=== PATIENT | female | born 1970 | race Caucasian/White ===

== ENCOUNTER → 2020-07-20 | Outpatient (CLI) | payer OTHER, MEDICARE ==
[~2020-07-20] MED LIST: ALPR-585 PO; B CO1TAB14 PO; BUPR1PAT20 TD; CHOL10003 PO; DULO60CA56 PO; HYDR-1067 PO; MORP-29 PO; MULT-658 PO; NALD0.2T3 PO; PREG100C PO; QUET100T PO; SENN-190 PO; TIZA4TAB2 PO; TOPI100T24 PO; fish oil PO; turmeric PO
== END | disposition home or self-care (01) ==
LOC: STAR 15:02
PROVIDERS: ATTEND Otolaryngology
DX: Z20.822 Contact with and (suspected) exposure to COVID-19 (principal); K14.8 Other diseases of tongue; R59.0 Localized enlarged lymph nodes
CPT/HCPCS: 87635

== ENCOUNTER 2020-07-26 06:57 | Day surgery (SDC) | payer OTHER, MEDICARE ==
[~2020-07-26] VITALS: Ht 160 cm; Wt 98.2 kg
[2020-07-26] MEDS ORDERED: FENTANYL PF 100 MCG/2ML ONE (07:45)
[2020-07-26] MEDS ORDERED: ROCURONIUM 10MG/ML,5ML ONE (07:45)
[2020-07-26] MEDS ORDERED: DEXAMETHASONE 4 MG/ML, 1ML ONE (07:45)
[2020-07-26] MEDS ORDERED: PROPOFOL 10 MG/ML, 20ML ONE (07:45)
[2020-07-26] MEDS ORDERED: ONDANSETRON 2MG/ML, 2ML ONE (07:45)
[2020-07-26] MEDS ORDERED: SUCCINYLCHOLINE 20 MG/ML, 10ML ONE (07:45)
[2020-07-26] MEDS ORDERED: CEFAZOLIN 1,000 MG ONE (07:45)
[2020-07-26] MEDS ORDERED: GLYCOPYRROLATE 0.2MG/1ML, 5ML ONE (07:45)
[2020-07-26] MEDS ORDERED: MIDAZOLAM 1 MG/ML, 2ML ONE (07:45)
[2020-07-26] MEDS ORDERED: NEOSTIGMINE 1 MG/ML, 10ML ONE (07:45)
[2020-07-26] MEDS ORDERED: LEVO50TA5 PO (07:49)
[2020-07-26 07:55] LABS: HCG UR SG 1.018 (1.003-1.030)
[2020-07-26] MEDS ORDERED: CHLORHEXIDINE 15 ML UDC MM ONE (08:00)
[2020-07-26] MEDS ORDERED: LACTATED RINGERS 1,000 ML IV SCH (08:00)
[2020-07-26] MEDS ORDERED: EPINEPHRINE 1 MG/ML, 1ML ONE (08:16)
[2020-07-26] MEDS ORDERED: LIDOCAINE/PF 1%, 30ML ONE (08:16)
[2020-07-26] MEDS ORDERED: KETOROLAC 30 MG/1 ML ONE (08:38)
[2020-07-26] MEDS ORDERED: BUPIVACAINE/PF 0.25% ONE (08:59)
[2020-07-26] MEDS ORDERED: MEPERIDINE/PF 25MG/0.5ML IVPush PRN (09:00)
[2020-07-26] MEDS ORDERED: OXYcodone 5 MG/5 ML ORAL.SOL UDC PO PRN (09:00)
[2020-07-26] MEDS ORDERED: morphine SULFATE 10 MG/ML, 1ML IVPush PRN (09:00)
[2020-07-26] MEDS ORDERED: HYDROmorphone 1 MG/ML, 1ML INJ IVPush PRN (09:00)
[2020-07-26] MEDS ORDERED: HYDROcodone/APAP 7.5-325MG/15ML UDC PO PRN (09:00)
[2020-07-26] MEDS ORDERED: PROMETHAZINE 25 MG/ML, 1ML IVPush PRN (09:00)
[2020-07-26] MEDS ORDERED: ONDANSETRON 2MG/ML, 2ML IVPush PRN (09:00)
[2020-07-26] MEDS ORDERED: FENTANYL PF 100 MCG/2ML IV PRN (09:00)
== END 2020-07-26 11:00 | disposition home or self-care (01) ==
LOC: OUT 06:57 → EDSTATUS 07:30 → OUT 11:00
PROVIDERS: ATTEND Otolaryngology
DX: K14.8 Other diseases of tongue (principal); R59.0 Localized enlarged lymph nodes; F41.9 Anxiety disorder, unspecified; E66.9 Obesity, unspecified; Z79.899 Other long term (current) drug therapy; Z88.2 Allergy status to sulfonamides
CPT/HCPCS: 41100; 81025; 88305; 88331; 88341; 88342; J0171; J0330; J0690; J1100; J1885; J2250; J2405; J2704; J2710; J3010; J7120